=== PATIENT | male | born 1930 | race Caucasian/White ===

== ENCOUNTER 2016-10-10 22:42 | Inpatient (IN) | payer OTHER ==
--- NOTE | ~2016-10-10 | CN ---
Consultation Report [facility] [address] [place]. [address] NAME: ADITHYA COOPER : 34 STATUS : ADM IN [facility]#: [id number] AGE: 86 ADM/REG DATE : 10/10/16 MR#: [id number] REPORT SERV DATE: 10/11/16 DICTATED BY: BEHZAD MARLOW DATE: 10/11/16 REPORT STATUS : Draft TRANSCRIBED BY: MODL DATE: 10/11/16 DATE OF CONSULTATION: Mr. Adithya Cooper is admitted through the emergency room with hypoxemia. TECHNOLOGY PROJECT MANAGER: Dr. Bach at [place]. CONSTRUCTION PERSON: Dr. Murillo. HISTORY OF PRESENT ILLNESS: Mr. Adithya Cooper has a long history of coronary artery disease and COPD with pulmonary hypertension. His keeps very close track of his weight and his lower extremity edema, which has not changed over the last week. She noted, however, the oxygen level was decreasing. He had recently been treated for an abnormal chest x-ray. He came to the emergency room and the patient was sent here. REVIEW OF SYSTEMS: Negative for chest pain, chest discomfort, fever, chills, productive cough, lower extremity edema, or change in weight. No palpitations, syncope, or presyncope noted. PAST MEDICAL HISTORY: 1. COPD with severe pulmonary hypertension on echocardiogram. 2. Coronary artery disease status post coronary artery bypass grafting. 3. History of atrial fibrillation. 4. Renal insufficiency with chronic anemia. 5. Anticoagulation with Eliquis. 6. Ischemic cardiomyopathy. SOCIAL HISTORY: He is a former tobacco smoker. He does not drink. His is a strong supporter. FAMILY HISTORY: Negative for early heart disease. PHYSICAL EXAMINATION: VITAL SIGNS: Blood pressure is 125/59, pulse is 60, he is afebrile. GENERAL: He is alert, cooperative, in no distress, Resting comfortably. Overall, he appears chronically ill. EYES: PERRLA. LUNGS: No labored use of accessory muscles. Without rales or wheezes. COR: PMI is not displaced. No thrills or heaves. NL S1 and S2. No S3, murmur, click or rub. PULSES: Carotids without bruits. ABD: +BS, nontender. EXT: No cyanosis, clubbing or edema. SKIN: No petechiae. NEURO: Alert and oriented. Does not appear anxious or depressed. Consultation Report [facility] [address] [place]. [address] NAME: ADITHYA COOPER : 32 STATUS : ADM IN PAT#: [id number] AGE: 86 ADM/REG DATE : 10/10/16 MR#: [id number] REPORT SERV DATE: 10/11/16 DICTATED BY: BEHZAD MARLOW DATE: 10/11/16 REPORT STATUS : Draft TRANSCRIBED BY: WILLIAM DATE: 10/11/16 LABORATORY EVALUATION: Baseline creatinine 0.8 to 1.2, currently at 1.3. Hematocrit is 29 with a hemoglobin of 9. IMAGING: Chest x-ray shows bilateral asymmetrical diffuse infiltrates consistent with interstitial lung disease. ASSESSMENT AND PLAN: At this time, there appears to be exacerbation of chronic obstructive pulmonary disease. There is some right-sided failure, but it appears to be minor. We will diurese as needed, following blood pressure carefully. Follow renal function as the diuresis takes place. KORY/WILLIAM Behzad Marlow M.D. / [id number] CC: Lisset Calderon MD
--- NOTE | ~2016-10-10 | HP ---
History And Physical [address] [place]. [address] NAME: BRANNON COOPER : 34 STATUS : ADM IN [facility]#: [id number] AGE: 86 ADM/REG DATE : 10/10/16 MR#: [id number] REPORT SERV DATE: 10/11/16 DICTATED BY: JHON SILVA DATE: 10/11/16 REPORT STATUS : Draft TRANSCRIBED BY: MODL DATE: 10/11/16 DATE OF ADMISSION: 10/10/2016 POINT OF ENTRY: Transferred from [facility] Emergency Department. PRIMARY CARE PHYSICIAN: Mei Antoine M.D. PRIMARY INTERVENTIONAL PHYSICIAN: Jason Murillo M.D. PRIMARY EMBEDDED ENGINEER: Dr. Bach. CHIEF COMPLAINT: Shortness of breath and dyspnea on exertion. HISTORY OF PRESENT ILLNESS: Mr. Cooper is an 86-year-old gentleman with a history of COPD on chronic 3-4 L by nasal cannula, coronary artery disease, atrial fibrillation on Eliquis as well as chronic systolic congestive heart failure with ejection fraction of 45%, who presented to [facility] Emergency Department earlier this evening with reports of a three to four-day history of progressive worsening shortness of breath, and dyspnea on exertion. The patient states that for the past three to four days, he has noticed worsening of his baseline shortness of breath, as well as dyspnea on exertion. He denies any chest pain, palpitations, cough, sputum production, wheezing. The patient is on p.r.n. Lasix only, it is determined by weight gain. His who is at bedside states that they weigh the patient on a daily basis and has not had any recent weight gain whatsoever for the past four to five days. Also denies any lower extremity edema or abdominal bloating or distention. Denies any melena, hematochezia, hemoptysis, or hematemesis. Initial evaluation over at [facility] Emergency Department notable for a chest x-ray concerning for pulmonary edema as well as a BNP level was elevated at 1770. He was noted to be hypoxemic on 4 L by nasal cannula and therefore was bumped up to 6 L by nasal cannula. Remainder of his labs were unremarkable. He was given 40 mg of IV Lasix as well as 1/2 inch of nitro paste given his pulmonary edema with approximately 800 mL of urine output, and then transferred to [facility] for higher level of care. REVIEW OF SYSTEMS: Comprehensive review of systems otherwise negative unless listed in history of present illness. PREVIOUS MEDICAL HISTORY: 1. Chronic systolic congestive heart failure with an ejection fraction of 45%. 2. Paroxysmal atrial fibrillation, on Eliquis. 3. History of dysphagia and aspiration. 4. BPH. 5. Status post mitral valve repair. 6. Coronary artery disease with prior coronary artery bypass grafting. 7. COPD on 3-4 L by nasal cannula. History And Physical [address] [address] NAME: BRANNON COOPER : 32 STATUS : ADM IN PAT#: [id number] AGE: 86 ADM/REG DATE : 10/10/16 MR#: [id number] REPORT SERV DATE: 10/11/16 DICTATED BY: JHON SILVA DATE: 10/11/16 REPORT STATUS : Draft TRANSCRIBED BY: WILLIAM DATE: 10/11/16 PAST SURGICAL HISTORY: 1. CABG. 2. Mitral valve repair. 3. Cataract surgery. 4. Appendectomy. 5. Back surgery. ALLERGIES: NO KNOWN DRUG ALLERGIES. HOME MEDICATIONS: Pending at the time of dictation. SOCIAL HISTORY: He is a former smoker, but quit about 40 years ago. Denies any alcohol. Denies any illicits. FAMILY HISTORY: Mother with coronary artery disease. Father of "lung problems." Siblings with end-stage renal disease. LABS AND IMAGIN. White count is 8.2, hemoglobin is 8.1, hematocrit is 26.9, and platelet count is 184. 2. Sodium is 138, potassium 4.2, chloride 107, carbon dioxide 22, BUN 30, creatinine 1.0, glucose is 90, calcium is 7.9, protein is 5.9, albumin is 3.0, bilirubin is 0.6, ALT is 114, AST is 129, and alkaline phosphatase is 87. 3. Troponin is 0.02. BNP is 1770, upper limit of normal being 100. 4. Urinalysis: Spec gravity is 1.011, no evidence of any infection. 5. ABG; pH is 7.43, pCO2 is 37, PO2 is 65, saturating 94% on 6 L nasal cannula. 6. Occult stool is positive. 7. EKG per my review shows normal sinus rhythm with extreme left axis deviation, no evidence of any acute ischemia or infarction. 8. Chest x-ray per ER physician report shows pulmonary edema as well as cardiomegaly. PHYSICAL EXAMINATION: VITAL SIGNS: Temperature is 98.1 degrees Fahrenheit, pulse is 68, respirations 16, saturating 94% on 6 L by nasal cannula, and blood pressure is 140/69. GENERAL: The patient is awake and alert, in no acute distress. Resting comfortably in bed. He is a well-developed, well-nourished, elderly male. is at bedside. HEENT: Atraumatic and normocephalic. Moist mucous membranes. Pupils are equal, round, reactive to light and accommodation. Extraocular eye movements intact. No scleral icterus. NECK: No jugular venous distention. No carotid bruits. CARDIAC: Regular rate and rhythm. No murmurs, rubs, or gallops. Normal S1, normal S2. LUNGS: On oxygen, but in no respiratory distress. Does have some decreased breath sounds at bases as well as inspiratory crackles and rales in the bilateral bases. ABDOMEN: Soft, nontender, and nondistended with good bowel sounds. No rebound, guarding, or rigidity. EXTREMITIES: Warm and perfused. No cyanosis, clubbing, or edema. SKIN: Warm and dry. PSYCH: Affect appropriate. History And Physical [address] [address] NAME: BRANNON COOPER : 34 STATUS : ADM IN [facility]#: [id number] AGE: 86 ADM/REG DATE : 10/10/16 MR#: [id number] REPORT SERV DATE: 10/11/16 DICTATED BY: JHON SILVA DATE: 10/11/16 REPORT STATUS : Draft TRANSCRIBED BY: MODL DATE: 10/11/16 NEURO: Alert and oriented x3. Cranial nerves 2 through 12 grossly intact. Speech is normal. Gait is not assessed. ASSESSMENT AND PLAN: Mr. Cooper is an 86-year-old gentleman, who presents with a few day history of worsening shortness of breath, dyspnea on exertion, and found to have evidence of acute on chronic systolic congestive heart failure as well as worsening of his baseline hypoxemia. PROBLEM LIST: 1. Acute on chronic systolic congestive heart failure. 2. Acute on chronic hypoxic respiratory failure. 3. Acute on chronic anemia with occult positive stools. 4. Transaminitis. 5. Atrial fibrillation, on Eliquis. PLAN: 1. Acute on chronic systolic congestive heart failure exacerbation. The patient seemed to have had a good response to IV Lasix at [facility]. We will continue two more doses of IV Lasix and then convert over to oral Lasix. Place on sodium and fluid restriction. Daily weights and Cardiology consultation. 2. Acute on chronic hypoxemia likely secondary to acute on chronic systolic congestive heart failure exacerbation. I do not appreciate any evidence of acute COPD exacerbation at this time. 3. Acute on chronic anemia with occult positive stools. The patient is on Eliquis. He denies any recent gross melena, hematochezia, or hemoptysis. We will consult the patient's primary music minister, Dr. Peterson, for assistance. 4. Transaminitis likely secondary to congestive hepatopathy. Checking viral hepatitis panel as well as right upper quadrant ultrasound. 5. Atrial fibrillation, on Eliquis. Continue this. The patient is currently well rate controlled. 6. DVT prophylaxis. The patient is on Eliquis. CODE STATUS: The patient wishes to be full code. JCB/MODL Jhon Silva MD / [id number] CC: Lisset Calderno MD Andrew H Fowler, M.D.
--- NOTE | ~2016-10-10 | DS ---
Discharge Summary [facility] [address] [facility] [place]. [address] NAME: BRANNON CLAUDIO : 34 STATUS : DIS IN PAT#: [id number] AGE: 86 ADM/REG DATE : 10/10/16 MR#: [id number] REPORT SERV DATE: 10/17/16 DICTATED BY: JOLANTA KINNEY DATE: 10/15/16 REPORT STATUS : Draft TRANSCRIBED BY: WILLIAM DATE: 10/15/16 ADMISSION DATE: 10/10/2016 DISCHARGE DATE: 10/15/2016 NEWS INTERNSHIP: Jason Murillo M.D., Cardiology. INVASIVE PROCEDURE: None. DISCHARGE DIAGNOSES: 1. Acute on chronic hypoxic respiratory failure. 2. Chronic obstructive pulmonary disease exacerbation. 3. Chronic systolic heart failure with reduced ejection fraction of 45%. 4. Paroxysmal atrial fibrillation with rapid ventricular response, on Eliquis for chronic anticoagulation. 5. History of mitral valve repair. 6. History of coronary artery disease with prior history of coronary artery bypass grafting. 7. History of chronic chronic obstructive pulmonary disease, oxygen dependent. 8. Acute kidney injury on chronic kidney disease, stage 3. DISCHARGE CONDITION: Stable. HISTORY OF PRESENT ILLNESS: For detailed HPI, please make reference to Dr. Silverio Richardson's dictation on 10/11/2016. In brief, this is an 86-year-old gentleman with medical history of COPD, on chronic three to four liters of nasal oxygen at home; coronary artery disease; atrial fibrillation, on Eliquis; chronic congestive heart failure with ejection fraction of 45%, who presented from [facility] Emergency Department with complaints of worsening shortness of breath of four days' duration. Initial evaluation at [facility] was noted for a chest x-ray concerning for pulmonary edema with elevated BNP of 1770 and was also noted to be hypoxic on four liters of nasal cannula. An assessment of acute on chronic hypoxic respiratory failure due to COPD exacerbation and acute decompensated heart failure was made. The patient was transferred from [facility] to for further management. HOSPITAL COURSE: 1. Acute on chronic hypoxic respiratory failure. On arrival to , the patient's oxygen requirement was at six liters in order to maintain saturation above 90%. The patient was started on IV diuretics as well as broad-spectrum antibiotics and steroids. The patient's shortness of breath continued to improve. The patient was successfully weaned down from 6 liters to 4 liters. The patient's shortness of breath, crackles, and lower extremity edema continued to improve throughout the course of admission. The patient diuresed well and returned back to his baseline dry weight prior to discharge. The patient was discharged home on prednisone taper. To follow up with primary care physician and Pulmonology. 2. Acute decompensated heart failure with reduced EF of 45%. The patient's primary crayon sorting machine feeder was consulted during the course of this admission. Recommended IV diuresis as dictated above. Prior to discharge, the patient was transitioned to p.o. Discharge Summary [address] [address] NAME: BRANNON CLAUDIO : 34 STATUS : DIS IN PAT#: [id number] AGE: 86 ADM/REG DATE : 10/10/16 MR#: [id number] REPORT SERV DATE: 10/17/16 DICTATED BY: JLOANTA KINNEY DATE: 10/15/16 REPORT STATUS : Draft TRANSCRIBED BY: WILLIAM DATE: 10/15/16 diuretics and was advised to continue followup with Cardiology. 3. Paroxysmal atrial fibrillation with rapid ventricular response. The patient was noted to be in atrial fibrillation during the course of this admission without any evidence of rapid ventricular response. The patient's beta johnathan and Eliquis were continued. The patient's amiodarone was discontinued during this admission because of concern for possible hepatic injury secondary to adverse effect of amiodarone. The patient's amiodarone was held. No evidence of rapid ventricular response throughout the course of this admission. The patient was advised to continue beta johnathan at home as prescribed. The patient was also advised to continue followup with Cardiology as outpatient. 4. Transaminitis. On presentation, the patient's ALT and AST were noted to be elevated at 168 and 222 respectively. Hepatitis panel was negative. There was a concern that amiodarone may be contributing to this patient's hepatic injury hence amiodarone was discontinued during this admission. The patient's liver enzymes continued to trend down and remain stable. The patient was advised to continue follow up with primary care physician with repeat labs. 5. Normocytic anemia. The patient's hemoglobin remained stable at 8.8 throughout the course of this admission. No evidence of acute blood loss. The patient was advised to continue iron supplement and follow up with primary care physician. DISCHARGE CONDITION: Stable. DISCHARGE MEDICATIONS: 1. Prednisone taper. 2. Eliquis 2.5 mg p.o. b.i.d. 3. Coreg 3.125 mg p.o. b.i.d. 4. Cardura 4 mg p.o. at bedtime. 5. Ferrous sulfate 325 mg p.o. daily. 6. Finasteride 5 mg p.o. daily. 7. Omeprazole 40 mg p.o. daily. 8. Zoloft 100 mg p.o. daily. 9. Spiriva one inhaler daily. 10.Atrovent 0.5 mg/2.5 mg four times a day p.r.n. 11.Albuterol one puff four times a day p.r.n. 12.Lasix 40 mg p.o. daily. 13.Ellipta 200/25 mcg one puff every morning. 14.Atorvastatin 20 mg p.o. daily. DISCHARGE ACTIVITIES: As tolerated. DISCHARGE DIET: Low-salt diet. FOLLOWUP: 1. Follow up with primary crayon sorting machine feeder, Dr. Murillo within one to two weeks of discharge. 2. Follow up with primary care physician within one week of discharge. 3. Follow up with design chief, the patient may benefit from pulmonary rehab as an outpatient. Appointment scheduled for followup within two weeks of discharge. Discharge Summary [address] [address] NAME: BRANNON CLAUDIO : 34 STATUS : DIS IN PAT#: [id number] AGE: 86 ADM/REG DATE : 10/10/16 MR#: [id number] REPORT SERV DATE: 10/17/16 DICTATED BY: JOLANTA KINNEY DATE: 10/15/16 REPORT STATUS : Draft TRANSCRIBED BY: WILLIAM DATE: 10/15/16 DISCHARGE DISPOSITION: Home. The patient's was at the bedside at the time of discharge. The above discharge plans were discussed with the patient and his , who were all in agreement with the above plan. Greater than 35 minutes was used to prepare this patient's discharge, reconcile medication, advise the patient on discharge plans and followup. DICTATED BY: MD DAVIS Doyle/WILLIAM Jolanta Kinney MD / [id number] CC: MD NATALY Doyle,MD Jason Steele M.D.
[~2016-10-10 22:42] MED LIST: 8 HOUR650 MG PO; ADVAIR250 INH; ALBUTEROL0.63 MG/3 INH; ASAB PO; ATV.5 PO; B12100T PO; CALTRA600D PO; CARDCD180 PO; CARDU2 PO; CARDU4 PO; CEFT5 PO; CENTRUM PO; CORDARONE PO; COREG3; COREG3 PO; ELIQUIS 5 MG TAB5 MG PO; FEOSOL200 MG PO; FLONASE NAS; IRON OTC PO; IRON325 MG PO; KLOR-CON M1010 MEQ PO; KLOR-CON M2020 MEQ PO; L40 PO; LIPITOR20 PO; LIQUID TEARS OPH; MULTIPLE VIT PO; OS500 PO; OS500+D PO; PRILOSEC40 MG PO; PRIN2.5 PO; PROAIR HFA INH; PROPECIA1 MG PO; PROSCAR5 PO; PROVENTSOL INH; SAL750 PO; SPIRIVA INH; TEVETEN PO; TEVETEN600 MG PO; ZOL100 PO; ZYRTEC ALLGY10 MG PO
[2016-10-11] MEDS ORDERED: ADVAIR250 INH (00:46)
[2016-10-11] MEDS ORDERED: SPIRIVA INH (00:46)
[2016-10-11] MEDS ORDERED: PRILOSEC40 MG PO (00:46)
[2016-10-11] MEDS ORDERED: CORDARONE PO (00:47)
[2016-10-11] MEDS ORDERED: ATV.5 PO (00:47)
[2016-10-11] MEDS ORDERED: ATROVENTUD INH (00:47)
[2016-10-11] MEDS ORDERED: CARDU4 PO (00:47)
[2016-10-11] MEDS ORDERED: LIPITOR20 PO (00:48)
[2016-10-11] MEDS ORDERED: KDUR20 PO (00:48)
[2016-10-11] MEDS ORDERED: PROSCAR5 PO (00:48)
[2016-10-11] MEDS ORDERED: ZOL100 PO (00:48)
[2016-10-11] MEDS ORDERED: COREG3 PO (00:48)
[2016-10-11] MEDS ORDERED: L40 PO (00:49)
[2016-10-11] MEDS ORDERED: ELIQUIS 2.5 MG2.5 MG PO (00:58)
[2016-10-11] MEDS ORDERED: 8 HOUR650 MG PO (00:59)
[2016-10-11] MEDS ORDERED: BREO ELLIPTA 21 EACH INH (00:59)
[2016-10-11] MEDS ORDERED: CALTRA600D PO (01:00)
[2016-10-11] MEDS ORDERED: ZYRTEC ALLGY10 MG PO (01:00)
[2016-10-11] MEDS ORDERED: FERROUS SULF325 M1 PO (01:00)
[2016-10-11] MEDS ORDERED: CRANBERRY OTC PO (01:01)
[2016-10-11] MEDS ORDERED: TEARS PURE OPH (01:05)
[2016-10-11] MEDS ORDERED: OCEAN NAS (01:05)
[2016-10-11] MEDS ORDERED: VENTOLIN HFA INH (01:06)
[2016-10-11 02:53] LABS: BASOPHILS 0.5 %; BASOPHILS ABSOLUTE 0.04 10/3/uL (0.0-0.16); EOSINOPHILS 9.8 %; EOSINOPHILS ABSOLUTE 0.81 10/3/uL (0.0-0.53); HEMATOCRIT 28.7 % (40.0-51.0); HEMOGLOBIN 9.2 g/dL (13.6-17.8); IMMATURE GRANULOCYTES 0.4 %; IMMATURE GRANULOCYTES ABSOLUTE 0.03 10/3/uL (0.0-0.11); LYMPHOCYTES 6.2 %; LYMPHOCYTES ABSOLUTE 0.51 10/3/uL (0.67-4.30); MEAN CORPUS HGB CONC 32.1 g/dL (32.0-36.0); MEAN CORPUSCULAR HEMOGLOB 28.4 pg (26.0-34.0); MEAN PLATELET VOLUME 10.8 fL (9.2-13.0); MONOCYTES 8.3 %; MONOCYTES ABSOLUTE 0.69 10/3/uL (0.21-1.20); NEUTROPHILS 74.8 %; NEUTROPHILS ABSOLUTE 6.19 10/3/uL (2.02-8.40); RBC DISTRIBUTION WIDTH 15.6 % (12.0-16.0); WHITE BLOOD CELLS 8.3 10/3/uL (4.5-10.5)
[2016-10-11 02:54] LABS: MANUAL DIFF NO %; MEAN CORPUSCULAR VOLUME 88.6 fL (80-100); PLATELET COUNT 208 10/3/uL (150-400); RED CELL COUNT 3.24 10/6/uL (4.7-6.1)
[2016-10-11 03:17] LABS: BUN (BLOOD UREA NITROGEN) 28 MG/DL (6-23); CALCIUM, SERUM 8.4 MG/DL (8.5-10.4); CHLORIDE, SERUM 105 MMOL/L (96-112); CO2 (CARBON DIOXIDE) 30 MMOL/L (24-34); CPK 26 U/L (0-200); GLUCOSE, SERUM 98 MG/DL (60-99); POTASSIUM, SERUM 3.8 MMOL/L (3.5-5.3); SODIUM, SERUM 142 MMOL/L (135-148); TROPONIN I 0.03 NG/ML (<0.05)
[2016-10-11 03:18] LABS: CK-MB 1.1 NG/ML; CREATININE 1.33 MG/DL (0.70-1.30); GFR AFRICAN AMERICAN 56 ML/MIN (>=60); GFR NON AFRICAN AMERICAN 49 ML/MIN (>=60)
[2016-10-11 09:09] LABS: HEPATITIS C ANTIBODY NON-REACTIVE (NON-REACT)
[2016-10-11 09:10] LABS: HEPATITIS B CORE AB IGM NON-REACTIVE (NON-REAC)
[2016-10-11 09:11] LABS: HEP A ANTIBODY IGM NON-REACTIVE (NON-REACT)
[2016-10-11 09:13] LABS: HEPATITIS B SURFACE ANTIGEN NON-REACTIVE (NON-REACT)
[2016-10-11 10:18] LABS: CK-MB 1.8 NG/ML; CPK 25 U/L (0-200)
[2016-10-12 02:14] LABS: BASOPHILS 0.4 %; BASOPHILS ABSOLUTE 0.03 10/3/uL (0.0-0.16); EOSINOPHILS 11.5 %; EOSINOPHILS ABSOLUTE 0.94 10/3/uL (0.0-0.53); HEMATOCRIT 28.6 % (40.0-51.0); HEMOGLOBIN 9.2 g/dL (13.6-17.8); IMMATURE GRANULOCYTES 0.2 %; IMMATURE GRANULOCYTES ABSOLUTE 0.02 10/3/uL (0.0-0.11); LYMPHOCYTES 4.3 %; LYMPHOCYTES ABSOLUTE 0.35 10/3/uL (0.67-4.30); MEAN CORPUS HGB CONC 32.2 g/dL (32.0-36.0); MEAN CORPUSCULAR HEMOGLOB 28.1 pg (26.0-34.0); MEAN CORPUSCULAR VOLUME 87.5 fL (80-100); MEAN PLATELET VOLUME 10.1 fL (9.2-13.0); MONOCYTES ABSOLUTE 0.82 10/3/uL (0.21-1.20); NEUTROPHILS 73.6 %; PLATELET COUNT 182 10/3/uL (150-400); RBC DISTRIBUTION WIDTH 15.6 % (12.0-16.0); RED CELL COUNT 3.27 10/6/uL (4.7-6.1); WHITE BLOOD CELLS 8.2 10/3/uL (4.5-10.5)
[2016-10-12 02:20] LABS: MANUAL DIFF NO %
[2016-10-12 02:37] LABS: A/G RATIO 0.8 (0.7-1.9); ALBUMIN 2.7 G/DL (3.5-5.0); ALKALINE PHOSPHATASE 94 U/L (45-117); BUN (BLOOD UREA NITROGEN) 25 MG/DL (6-23); CALCIUM, SERUM 8.2 MG/DL (8.5-10.4); CHLORIDE, SERUM 105 MMOL/L (96-112); CO2 (CARBON DIOXIDE) 32 MMOL/L (24-34); CREATININE 1.24 MG/DL (0.70-1.30); GFR AFRICAN AMERICAN 61 ML/MIN (>=60); GFR NON AFRICAN AMERICAN 53 ML/MIN (>=60); GLOBULIN 3.6 G/DL (2.5-4.1); GLUCOSE, SERUM 95 MG/DL (60-99); POTASSIUM, SERUM 3.8 MMOL/L (3.5-5.3); SGOT(AST) 222 U/L (5-40); SGPT(ALT) 168 U/L (5-65); SODIUM, SERUM 141 MMOL/L (135-148); TOTAL BILIRUBIN 0.6 MG/DL (0-1.2); TOTAL PROTEIN 6.3 G/DL (6.0-8.5)
[2016-10-13 06:16] LABS: BASOPHILS 0.1 %; BASOPHILS ABSOLUTE 0.01 10/3/uL (0.0-0.16); EOSINOPHILS 0.5 %; EOSINOPHILS ABSOLUTE 0.04 10/3/uL (0.0-0.53); HEMATOCRIT 27.4 % (40.0-51.0); HEMOGLOBIN 8.9 g/dL (13.6-17.8); IMMATURE GRANULOCYTES 0.5 %; IMMATURE GRANULOCYTES ABSOLUTE 0.04 10/3/uL (0.0-0.11); LYMPHOCYTES 6.5 %; MANUAL DIFF NO %; MEAN CORPUS HGB CONC 32.5 g/dL (32.0-36.0); MEAN CORPUSCULAR HEMOGLOB 28.3 pg (26.0-34.0); MEAN CORPUSCULAR VOLUME 87.3 fL (80-100); MEAN PLATELET VOLUME 10.2 fL (9.2-13.0); MONOCYTES 9.6 %; MONOCYTES ABSOLUTE 0.74 10/3/uL (0.21-1.20); NEUTROPHILS 82.8 %; NEUTROPHILS ABSOLUTE 6.34 10/3/uL (2.02-8.40); PLATELET COUNT 209 10/3/uL (150-400); RBC DISTRIBUTION WIDTH 15.6 % (12.0-16.0); RED CELL COUNT 3.14 10/6/uL (4.7-6.1); WHITE BLOOD CELLS 7.7 10/3/uL (4.5-10.5)
[2016-10-13 06:19] LABS: % IRON SAT 7 % (20-50); A/G RATIO 0.7 (0.7-1.9); ALBUMIN 2.6 G/DL (3.5-5.0); ALKALINE PHOSPHATASE 94 U/L (45-117); BUN (BLOOD UREA NITROGEN) 31 MG/DL (6-23); CALCIUM, SERUM 8.3 MG/DL (8.5-10.4); CHLORIDE, SERUM 106 MMOL/L (96-112); CO2 (CARBON DIOXIDE) 30 MMOL/L (24-34); CREATININE 1.18 MG/DL (0.70-1.30); FERRITIN 248 NG/ML (26-388); GFR AFRICAN AMERICAN 65 ML/MIN (>=60); GFR NON AFRICAN AMERICAN 56 ML/MIN (>=60); GLOBULIN 3.6 G/DL (2.5-4.1); GLUCOSE, SERUM 106 MG/DL (60-99); IRON BINDING CAPACITY 214 MCG/DL (250-450); IRON, SERUM 16 MCG/DL (35-150); SGOT(AST) 289 U/L (5-40); SGPT(ALT) 213 U/L (5-65); SODIUM, SERUM 141 MMOL/L (135-148); TOTAL BILIRUBIN 0.4 MG/DL (0-1.2); TOTAL PROTEIN 6.2 G/DL (6.0-8.5)
[2016-10-14 07:26] LABS: BASOPHILS 0.1 %; BASOPHILS ABSOLUTE 0.01 10/3/uL (0.0-0.16); EOSINOPHILS 0.3 %; EOSINOPHILS ABSOLUTE 0.02 10/3/uL (0.0-0.53); HEMOGLOBIN 8.8 g/dL (13.6-17.8); IMMATURE GRANULOCYTES 0.4 %; IMMATURE GRANULOCYTES ABSOLUTE 0.03 10/3/uL (0.0-0.11); LYMPHOCYTES 7.6 %; LYMPHOCYTES ABSOLUTE 0.52 10/3/uL (0.67-4.30); MEAN CORPUS HGB CONC 31.4 g/dL (32.0-36.0); MEAN CORPUSCULAR HEMOGLOB 27.7 pg (26.0-34.0); MEAN CORPUSCULAR VOLUME 88.1 fL (80-100); MEAN PLATELET VOLUME 11.2 fL (9.2-13.0); MONOCYTES 8.7 %; MONOCYTES ABSOLUTE 0.59 10/3/uL (0.21-1.20); NEUTROPHILS 82.9 %; NEUTROPHILS ABSOLUTE 5.63 10/3/uL (2.02-8.40); PLATELET COUNT 219 10/3/uL (150-400); RBC DISTRIBUTION WIDTH 15.7 % (12.0-16.0); RED CELL COUNT 3.18 10/6/uL (4.7-6.1); WHITE BLOOD CELLS 6.8 10/3/uL (4.5-10.5)
[2016-10-14 07:29] LABS: MANUAL DIFF NO %
[2016-10-14 07:41] LABS: ALBUMIN 2.6 G/DL (3.5-5.0); BUN (BLOOD UREA NITROGEN) 32 MG/DL (6-23); CALCIUM, SERUM 8.2 MG/DL (8.5-10.4); CHLORIDE, SERUM 107 MMOL/L (96-112); CO2 (CARBON DIOXIDE) 30 MMOL/L (24-34); CREATININE 0.97 MG/DL (0.70-1.30); GFR AFRICAN AMERICAN 83 ML/MIN (>=60); GFR NON AFRICAN AMERICAN 71 ML/MIN (>=60); GLUCOSE, SERUM 86 MG/DL (60-99); PHOSPHORUS, SERUM 2.5 MG/DL (2.5-4.5); POTASSIUM, SERUM 4.2 MMOL/L (3.5-5.3); SODIUM, SERUM 144 MMOL/L (135-148)
[2016-10-15 07:42] LABS: ALLENS TEST Pos; BE (BASE EXCESS) -1.4 MEQ/L (0 +/- 2.5); DEVICE NC; HEMOBLOGIN CONTENT 9.7 G/DL (14-18); INSTRUMENT SERIAL # 8083; METHEMOGLOBIN 0.3 % (0-3); O2 CONTENT 12.6 VOL% (18-24); OPERATOR ID 11525; PCO2 (CO2 TENSION) 37 MMHG (35-45); PO2 (O2 TENSION) 72 MMHG (79-93); SAMPLE Arterial; pH 7.41 (7.37-7.43)
== END 2016-10-15 12:19 | disposition home or self-care (01) | DRG 291 ==
LOC: 7NO 22:42
PROVIDERS: Hospitalist; Internal Medicine
DX: I50.23 Acute on chronic systolic (congestive) heart failure (principal); J96.21 Acute and chronic respiratory failure with hypoxia; N17.9 Acute kidney failure, unspecified; J44.1 Chronic obstructive pulmonary disease with (acute) exacerbation; I25.10 Atherosclerotic heart disease of native coronary artery without angina pectoris; I48.0 Paroxysmal atrial fibrillation; Z95.1 Presence of aortocoronary bypass graft; Z87.891 Personal history of nicotine dependence; Z79.02 Long term (current) use of antithrombotics/antiplatelets; Z99.81 Dependence on supplemental oxygen; N18.3 Chronic kidney disease, stage 3 (moderate); I27.2 Other secondary pulmonary hypertension; D50.9 Iron deficiency anemia, unspecified; N40.0 Benign prostatic hyperplasia without lower urinary tract symptoms
CPT/HCPCS: 36600; 71020; 71250; 76700; 76705; 80048; 80053; 80069; 80074; 82550; 82553; 82728; 82805; 83540; 83550; 83735; 84145; 84484; 85025; 94640; A9270-GY; J0456